=== PATIENT | male | born 1990 | race Two or more races ===

== ENCOUNTER 2017-12-24 20:37 | Emergency (ER) | payer MEDICAID ==
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
[2017-12-24 22:30] LABS: % MONOCYTES 7.5 % (2.0-10.0); EOSINOPHILE ABSOLUTE 0.2 Th/cmm (0.1-0.4); HEMOGLOBIN 15.9 gm/dL (12-16); MEAN PLATELET VOLUME 6.6 fl; MONOCYTE ABSOLUTE 0.7 Th/cmm (0.3-1.0)
[2017-12-24 22:32] LABS: % BASOPHILS 0.6 % (0.0-2.0); % LYMPHOCYTES 32.6 % (20.0-50.0); % NEUTROPHILS 57.3 % (40.0-80.0); BASOPHILE ABSOLUTE 0.1 Th/cumm (0-0.2); HEMATOCRIT 46.5 % (41.0-60); LYMPHOCYTE ABSOLUTE 3.1 Th/cmm (1.5-3.0); MEAN CELL VOLUME 85.8 fl (80-99); MEAN CORPUSCULAR HEMOGLOBIN 29.3 pg (26.0-30.0); MEAN CORPUSCULAR HGB CONC 34.2 pg (28.0-36.0); NEUTROPHILE ABSOLUTE 5.5 Th/cmm (1.8-8.0); PLATELET COUNT 248 Th/cmm (150-400); RED BLOOD COUNT 5.42 Mil/cmm (4.30-5.70); RED CELL DISTRIBUTION WIDTH 12.2 % (11.5-20.0); WHITE BLOOD COUNT 9.6 Th/cmm (4.8-10.8)
[2017-12-24 22:32] LABS: URINE SOURCE CLEAN C
[2017-12-24 22:35] LABS: URINE BILIRUBIN NEGATIVE (NEGATIVE); URINE BLOOD NEGATIVE (NEGATIVE); URINE GLUCOSE (UA) NEGATIVE (NEGATIVE); URINE KETONE NEGATIVE (NEGATIVE); URINE LEUKOCYTE ESTERASE NEGATIVE (NEGATIVE); URINE NITRATE NEGATIVE (NEGATIVE); URINE PROTEIN NEGATIVE (NEGATIVE); URINE UROBILINOGEN 0.2 E.U./dL (0.2 - 1.0)
[2017-12-24 22:45] LABS: ALB/GLOB RATIO 1.6 (1.0-1.8); ALBUMIN 4.4 gm/dL (4.2-5.5); ALKALINE PHOSPHATASE 54 U/L (34-104); ANION GAP 13.8 (7.0-16.0); BILIRUBIN,TOTAL 0.6 mg/dL (0.3-1.0); BUN - UREA NITROGEN 11 mg/dL (7-25); CALCIUM SERUM 9.2 mg/dL (8.6-10.3); CARBON DIOXIDE 27.7 mEq/L (21.0-31.0); CHLORIDE 102 mEq/L (98-107); GFR AFRICAN-AMERICAN > 60.0 ml/min (>90); GFR NON AFRICAN-AMERICAN > 60.0 ml/min; GLUCOSE 91 mg/dL (70-105); POTASSIUM SERUM 4.5 mEq/L (3.5-5.1); SGOT 17 U/L (13-39); SGPT/ALT 29 U/L (7-52); SODIUM SERUM 139 mEq/L (136-145); TOTAL PROTEIN,SERUM 7.1 gm/dL (6.0-8.3)
[2017-12-24 22:56] LABS: URINE CLARITY CLEAR (CLEAR); URINE COLOR YELLOW; URINE MICROSCOPIC INDICATED? YES
[2017-12-24 22:57] LABS: URINE BACTERIA OCCASIONAL /hpf (NONE SEEN); URINE EPITHELIAL CELLS NONE SEEN /lpf (FEW); URINE RBC NONE SEEN /hpf (0-5); URINE WBC 0-2 /hpf (0-5)
--- NOTE | 2017-12-25 10:00 | Diagnostic Imaging Report ---
Ultrasound abdomen HISTORY: Abdominal pain COMPARISON: CT abdomen and pelvis 12/24/2017 Technique: Sonography of the abdomen was performed in multiple planes. FINDINGS: Exam is limited due to body habitus and bowel gas. The liver demonstrates increased echogenicity measures 18 cm. The liver margin not well defined limiting assessment for focal lesions. The gallbladder was not visualized. The common bile duct was also not visualized. Limited assessment of the kidneys demonstrates no obvious focal lesions or hydronephrosis. The spleen measures 15 cm. The abdominal aorta is also not well visualized. IMPRESSION: Limited exam due to body habitus and bowel gas. The gallbladder was not visualized. No radiopaque gallstones on recent CT examination. Mild hepatomegaly with increased echogenicity which may be due to fatty infiltration Mildly prominent spleen which may be accentuated by technical factors as the spleen does not appear significantly prominent on recent CT exam. Please correlate with clinical findings.
--- NOTE | 2017-12-25 10:25 | Diagnostic Imaging Report ---
CT abdomen and pelvis without intravenous contrast Indication: Abdominal pain Comparison: None, Technique: Axial images were obtained from the lung bases to the bilateral proximal femurs without IV contrast. Coronal reconstructions were made. total DLP: 700, CTDI13.1 FINDINGS: Hypoventilatory and atelectatic changes of the lung bases are noted. Assessment of solid organs is limited due to lack of IV contrast. Hepatic steatosis is noted. No evidence of focal hepatic, splenic, or pancreatic lesions. Exam is also limited due to motion no focal adrenal lesions. No evidence of hydronephrosis. 3 mm nonobstructive left renal stone is noted. There is lucency inferior to the prostate gland asymmetric on the left measuring 2.7 x 0.9 cm located anterior to the rectum. No evidence of bowel obstruction. No free fluid or free air. No appendicitis. The osseous structures demonstrate no acute abnormalities. IMPRESSION: 3 mm nonobstructive left renal stone. No evidence bowel obstruction. 2.7 x 0.9 cm indeterminate irregular low-density along the left perineal region located inferior to the prostate gland and anterior to the rectum. Changes associated with small infectious/process and small fistulous tract cannot be excluded. Clinical correlation follow-up recommended if indicated short-term follow up CT with IV contrast may be obtained Hepatic steatosis.
== END 2017-12-24 23:48 | disposition home or self-care (01) ==
LOC: ER 20:37
DX: R10.31 Right lower quadrant pain (principal); R14.1 Gas pain
CPT/HCPCS: 36415-UA; 76700-TC; 80053-TC; 81001-TC; 85025-TC

== ENCOUNTER 2018-08-17 20:45 | Emergency (ER) | payer MEDICAID ==
[2018-08-17] MEDS ORDERED: MINERAL OIL ENEMA 135 ML BOTTLE RC ONE (21:08)
[2018-08-17 21:10] LABS: URINE SOURCE RANDOM
[2018-08-17] MEDS ORDERED: Magnesium Citrate 1.75 GM/300 mL Bottle PO ONE (21:12)
[2018-08-17] MEDS ORDERED: Magnesium Citrate 1.75 GM/300 mL Bottle ONE (21:15)
--- NOTE | 2018-08-17 21:18 | ED Physician Chart ---
ED Chief Complaint/HPI - Patient Information Date Seen:: 08/17/18 Time Seen:: 21:12 Chief Complaint:: constipation abd pain History of Present Illness:: 28 yr old male with mental delay here with dad for lt sided abd pain today and can not make a bm no fever no nv Allergies:: Allergies Allergy/AdvReac Type Severity Reaction Status Date / Time No Known Allergies Allergy Verified 12/24/17 21:26 Vitals:: Vital Signs - 8 hr 08/17/18 20:52 Temp 97.9 F HR 105 RR 17 BP 163/98 O2 Sat % 96 ED Review of Systems - Review of Systems General/Constitutional: No fever, No chills, No weight loss, No weakness, No diaphoresis, No edema, No loss of appetite Skin: No skin lesions, No rash, No bruising Head: No headache, No light-headedness Eyes: No loss of vision, No pain, No diplopia ENT: No earache, No nasal drainage, No sore throat, No tinnitus Neck: No neck pain, No swelling, No thyromegaly, No stiffness, No mass noted Cardio Vascular: No chest pain, No palpitations, No PND, No orthopnea, No edema Pulmonary: No SOB, No cough, No sputum, No wheezing GI: Pain G/U: No dysuria, No frequency, No hematuria Musculoskeletal: No bone or joint pain, No back pain, No muscle pain Endocrine: No polyuria, No polydipsia Psychiatric: No prior psych history, No depression, No anxiety, No suicidal ideation Hematopoietic: No bruising, No lymphadenopathy Allergic/Immuno: No urticaria, No angioedema Neurological: No syncope, No focal symptoms, No weakness, No paresthesia, No headache, No seizure, No dizziness, No confusion, No vertigo ED Past Medical History - Past Medical History Past Medical History: No significant medical hx Family Medical History - Family Member Mother History Unknown: Yes ED Physical Exam - Physical Examination General/Constitutional: Awake, Well-developed, well-nourished, Alert, No distress, GCS 15, Non-toxic appearing, Ambulatory Head: Atraumatic Eyes: Lids, conjuctiva normal, PERRL, EOMI Skin: Nl inspection, No rash, No skin lesions, No ecchymosis, Well hydrated, No lymphadenopathy ENMT: External ears, nose nl, Nasal exam nl, Lips, teeth, gums nl Neck: Nontender, Full ROM w/o pain, No JVD, No nuchal rigidity, No bruit, No mass, No stridor Respiratory: Nl effort/Exclusion, Clear to Auscultation, No Wheeze/Rhonchi/Rales Cardio Vascular: RRR, No murmur, gallop, rubs, NL S1 S2 GI: No tenderness/rebounding/guarding, No organomegaly, No hernia, Normal BS's, Nondistended, No mass/bruits, No McBurney tenderness : No CVA tenderness Other comments:: mild lt sided abd tenderness no masses no distension Extremities: No tenderness or effusion, Full ROM, normal strength in all extremities, No edema, Normal digits & nails Neuro/Psych: Alert/oriented, DTR's symmetric, Normal sensory exam, Normal motor strength, Judgement/insight normal, Mood normal, Normal gait, No focal deficits Misc: Normal back, No paraspinal tenderness ED Assessment - Assessment General Assessment: abd pain constipation ED Septic Shock - . Is Septic Shock (SBP<90, OR Lactate>4 mmol\L) present?: No - <6hrs of presentation: Vital Signs: Vital Signs - 8 hr /02/23 20:52 Temp 97.9 F HR 105 RR 17 BP 163/98 O2 Sat % 96 ED Reassessment (Disposition) - Reassessment Reassessment:: abd pain constipation - Diagnosis Diagnosis:: as above - Patient Disposition Discharge/Transfer:: Home Condition at Disposition:: Stable
[2018-08-17 21:19] LABS: URINE BILIRUBIN NEGATIVE (NEGATIVE); URINE BLOOD LARGE (NEGATIVE); URINE CLARITY HAZY (CLEAR); URINE COLOR YELLOW; URINE GLUCOSE (UA) NEGATIVE (NEGATIVE); URINE KETONE NEGATIVE (NEGATIVE); URINE MICROSCOPIC INDICATED? YES
[2018-08-17 21:20] LABS: URINE LEUKOCYTE ESTERASE NEGATIVE (NEGATIVE); URINE NITRATE NEGATIVE (NEGATIVE); URINE PROTEIN TRACE mg/dL (NEGATIVE); URINE UROBILINOGEN 0.2 E.U./dL (0.2 - 1.0)
[2018-08-17 21:21] LABS: URINE BACTERIA FEW /hpf (NONE SEEN); URINE EPITHELIAL CELLS OCCASIONAL /lpf (FEW); URINE RBC 25-50 /hpf (0-5); URINE WBC 0-2 /hpf (0-5)
[2018-08-17 22:24] LABS: HEMATOCRIT 49.1 % (41.0-60); HEMOGLOBIN 16.4 gm/dL (12-16); RED BLOOD COUNT 5.69 Mil/cmm (4.30-5.70); WHITE BLOOD COUNT 12.6 Th/cmm (4.8-10.8)
[2018-08-17 22:25] LABS: % EOSINOPHILS 0.2 % (0.0-5.0); MEAN CORPUSCULAR HEMOGLOBIN 28.8 pg (26.0-30.0); MEAN CORPUSCULAR HGB CONC 33.3 pg (28.0-36.0); PLATELET COUNT 237 Th/cmm (150-400); RED CELL DISTRIBUTION WIDTH 11.8 % (11.5-20.0)
[2018-08-17 22:26] LABS: % BASOPHILS 1.3 % (0.0-2.0); % LYMPHOCYTES 5.5 % (20.0-50.0); % MONOCYTES 2.9 % (2.0-10.0); % NEUTROPHILS 89.8 % (40.0-80.0); BASOPHILE ABSOLUTE 0.2 Th/cumm (0-0.2); EOSINOPHILE ABSOLUTE 0.1 Th/cmm (0.1-0.4); LYMPHOCYTE ABSOLUTE 0.7 Th/cmm (1.5-3.0); MEAN CELL VOLUME 86.3 fl (80-99); MONOCYTE ABSOLUTE 0.4 Th/cmm (0.3-1.0); NEUTROPHILE ABSOLUTE 11.4 Th/cmm (1.8-8.0)
[2018-08-17 22:49] LABS: ANION GAP 15.1 (7.0-16.0); CARBON DIOXIDE 23.1 mEq/L (21.0-31.0); CHLORIDE 103 mEq/L (98-107); GLUCOSE 128 mg/dL (70-105); POTASSIUM SERUM 4.2 mEq/L (3.5-5.1); SODIUM SERUM 137 mEq/L (136-145)
[2018-08-17 22:50] LABS: ALB/GLOB RATIO 1.7 (1.0-1.8); ALBUMIN 4.7 gm/dL (4.2-5.5); ALKALINE PHOSPHATASE 65 U/L (34-104); BILIRUBIN,TOTAL 1.1 mg/dL (0.3-1.0); BUN - UREA NITROGEN 14 mg/dL (7-25); CALCIUM SERUM 9.5 mg/dL (8.6-10.3); CREATININE - SERUM 1.3 mg/dL (0.7-1.3); GFR AFRICAN-AMERICAN > 60.0 ml/min (>90); GFR NON AFRICAN-AMERICAN > 60.0 ml/min; SGOT 21 U/L (13-39); SGPT/ALT 32 U/L (7-52); TOTAL PROTEIN,SERUM 7.4 gm/dL (6.0-8.3)
[2018-08-18 05:48] LABS: BAND NEUTROPHILE 1 % (0-10); LYMPHOCYTE 6 % (20-50); MONOCYTE 3 % (2-10); NEUTROPHILS 90 % (40-80); PLATELET ESTIMATE ADEQUATE (NORMAL)
== END 2018-08-18 00:05 | disposition home or self-care (01) ==
LOC: ER 20:45
DX: K59.00 Constipation, unspecified (principal); R10.9 Unspecified abdominal pain
CPT/HCPCS: 99284; 36415; 85007; 85025; 81001; 80053; Z7610; Z7502